=== PATIENT | female | born 1965 | race African-American/Black ===

== ENCOUNTER 2024-10-17 21:06 | Emergency (ER) | payer OTHER ==
[~2024-10-17] VITALS: Ht 170.2 cm; Wt 68.2 kg
[~2024-10-17 21:06] MED LIST: PANT-31 PO
[2024-10-17 21:15] VITALS: TEMP 98.4
[2024-10-17] MEDS: LIDOCAINE 1% 10 ML VIAL SQ ONE (22:53)
[2024-10-17] MEDS: CefTRIAXone 1 GM/DEXTROSE 50 ML IV ONE (22:53)
[2024-10-17] MEDS ORDERED: 0.9% SODIUM CHLORIDE 10 ML SYRINGE IVP PRN (23:00)
[2024-10-17 23:04] LABS: BASOPHILS % (AUTO) 0.2 % (0.0-2.0); EOSINOPHILS % (AUTO) 1.5 % (1.0-6.0); HEMATOCRIT 36.9 % (36-46); HEMOGLOBIN 12.1 g/dL (12.0-16.0); LYMPHOCYTES # (AUTO) 3.2 K/uL (1.0-4.8); LYMPHOCYTES % (AUTO) 20.9 % (22.0-44.0); MEAN CORPUSCULAR HEMOGLOBIN 27.3 pg (26.0-34.0); MEAN CORPUSCULAR HGB CONC 32.7 G/dL (31.0-37.0); MEAN CORPUSCULAR VOLUME 84 fL (80-100); MONOCYTES # (AUTO) 1.3 K/uL (0.1-1.0); MONOCYTES % (AUTO) 8.4 % (2.0-9.0); NEUTROPHILS # (AUTO) 10.7 K/uL (1.8-7.7); PLATELET COUNT (AUTO) 299 K/uL (150-450); RED BLOOD CELL COUNT(AUTO) 4.42 MIL/uL (4.00-5.20); WHITE BLOOD COUNT (AUTO) 15.6 K/uL (4.5-11.0)
[2024-10-17 23:14] LABS: ANION GAP 7 mmol/L (8-16); CALCIUM, TOTAL 8.8 mg/dL (8.8-10.5); CARBON DIOXIDE 34 mmol/L (22-29); CHLORIDE 101 mmol/L (98-107); CREATININE 0.49 mg/dL (0.60-1.30); GLOMERULAR FILTR. RATE CALC > 60 mL/min (>60); GLUCOSE,RANDOM 96 mg/dL (70-110); POTASSIUM 3.7 mmol/L (3.5-5.1); SODIUM SERUM 142 mmol/L (136-145); UREA NITROGEN, BLOOD 8 mg/dL (7-18)
[2024-10-17 23:23] LABS: LACTIC ACID 0.9 mmol/L (0.4-2.0)
[2024-10-17] MEDS: HYDROmorphone HCL 2 MG/ML SYRINGE IVP ONE (23:27)
[2024-10-17] MEDS: ONDANSETRON HCL 4 MG/2 ML VIAL IVP ONE (23:27)
[2024-10-17] MEDS: SODIUM CHLORIDE 0.9% 2,050 ML IV ONE (23:27)
[2024-10-17] MEDS: BACITRACIN 0.9 GM PACKET OINTMENT TP ONE (23:29)
[2024-10-17 23:45] VITALS: BP 127/80; PULSE 91; RESP 20; O2SAT 98
[2024-10-17] MEDS ORDERED: CEPH-558 PO (23:48)
[2024-10-17] MEDS ORDERED: DOXY-354 PO (23:48)
[2024-10-17] MEDS ORDERED: IBUP-1554 PO (23:48)
[2024-10-17] MEDS ORDERED: BACI28.410 TP (23:48)
== END 2024-10-18 | disposition left against medical advice (07) ==
LOC: EMS 21:06
DX: L03.012 Cellulitis of left finger (principal); L03.114 Cellulitis of left upper limb; A41.9 Sepsis, unspecified organism; F17.210 Nicotine dependence, cigarettes, uncomplicated; Z79.899 Other long term (current) drug therapy
CPT/HCPCS: 99284; 96365; 97597; 80048; 83605; 85025; 87040; 36415; 93005; 84145; J0696; J3490; J1171; J2405